=== PATIENT | female | born 1945 | race Caucasian/White ===

== ENCOUNTER 2020-07-21 09:12 | Observation (INO) | payer MEDICARE, SELFPAY ==
[2020-07-21] VITALS (22 sets, daily range): BP systolic 117–158; BP diastolic 53–87; PULSE 50–87; RESP 10–18; TEMP 35.6–36.6; O2SAT 94–100; BMI 20.2
--- NOTE | 2020-07-21 09:21 | ED.LOWEXIN ---
HPI - Extremity Injury (Lower) General Chief Complaint: Extremity Injury, Lower Stated Complaint: Fall Time Seen by Provider: 07/21/20 09:19 Source: patient and EMS Mode of arrival: EMS Limitations: no limitations History of Present Illness HPI Narrative: The patient is a 74-year-old female who presents with right ankle injury. She stepped getting out of her RV this morning and has a laceration to the medial side of her ankle injury has severe pain. She denies any other injury or hitting her head. She denies any numbness or tingling. She is afraid to move her foot because of pain. She received 100 of fentanyl prior to arrival. She denies any pain or injury to her knee MD complaint: ankle injury Related Data Home Medications Medication Instructions Recorded Confirmed atorvastatin 20 mg PO QPM 07/21/20 07/21/20 estradiol 1 mg PO DAILY 07/21/20 07/21/20 Allergies Allergy/AdvReac Type Severity Reaction Status Date / Time amoxicillin Allergy Hives Verified 07/21/20 09:40 Review of Systems Review of Systems Narrative: GENERAL: Denies chills,fever HEENT: Denies throat pain RESPIRATORY: Denies dyspnea, cough, wheezing CARDIOVASCULAR: Denies chest pain, palpitations GASTROINTESTINAL: Denies nausea, vomiting MUSCULOSKELETAL: See HPI SKIN: See HPI NEUROLOGIC: Denies weakness, dizziness, headache, numbness 8 point review of systems is negative except for those stated above and HPI Patient History Medical History Hyperlipidemia (Acute) Social History household members: significant other Smoking Status: Former smoker Exam Initial Vital Signs Initial Vital Signs: Vital Signs Temperature 97.9 F 07/21/20 09:06 Pulse Rate 53 L 07/21/20 09:06 Respiratory Rate 18 07/21/20 09:06 Blood Pressure 133/64 07/21/20 09:06 Pulse Oximetry 95 07/21/20 09:06 GENERAL: Well-appearing, well-nourished and in no acute distress. HEENT: Head atraumatic,EOMI, pupils reactive, face symmetric, moist mucous membranes CARDIOVASCULAR: Regular rate and rhythm without murmurs, rubs or gallops. RESPIRATORY: Breath sounds equal bilaterally, no wheezes rales or rhonchi. ABDOMEN: Soft, nontender. Normoactive bowel sounds all 4 quadrants. No guarding or rebound. EXTREMITIES: Normal range of motion, no clubbing or edema. Neurovascularly intact. Obvious laceration right medial side able to flex and extend ankle pulse is weak but present able to move toes NEUROLOGICAL: Alert and oriented x4.Normal gait and speech. Cranial nerves II through XII grossly intact. SKIN: 10 cm laceration noted right medial side tendons are visualized. Procedures Orthopedic Splinting/Casting Injury #1: Side: right Lower Extremity Immobilizer: posterior splint Post splinting neuro exam: intact and no change Post splinting vascular exam: no change Placed by: Nursing Course Orders Ordered: ED Orders 07/21/20 10:04 Basic Metabolic Panel Stat Complete Blood Count AUTO DIFF Stat Hydrocodone Bitart/Acetaminophen (Barnard 5/325) 1 tab PO Q4HR PRN PRN Reason: Pain, Mild (1-3) Lactated Ringer's (Lactated Ringers) 1,000 mls @ 125 mls/hr IV CONT [facility] Last Admin: 07/21/20 17:42 Dose: 125 mls/hr Documented by: HOLLEY Cefazolin Sodium/Dextrose (Ancef) 1 gm in 50 mls @ 200 mls/hr IV Q8H [facility] Stop: 07/22/20 05:14 Naloxone HCl (Narcan) 0.2 mg IV Q2MIN PRN PRN Reason: Opiate Reversal Ondansetron HCl (Zofran Odt) 4 mg PO Q4HR PRN PRN Reason: Nausea And Vomiting Oxycodone HCl (Percolone) 5 mg PO Q3HR PRN PRN Reason: Pain, Moderate (4-6) Discontinued Medications Acetaminophen (Tylenol) 975 mg PO NOW ONE Stop: 07/21/20 12:55 Last Admin: 07/21/20 18:25 Dose: Not Given Documented by: HOLLEY Acetaminophen (Tylenol) 975 mg PO NOW ONE Stop: 07/21/20 14:01 Last Admin: 07/21/20 18:26 Dose: Not Given Documented by: HOLLEY Acetaminophen (Tylenol) 975 mg PO TID [facility] Hydrocodone Bitart/Acetaminophen (Barnard 5/325) 1 tab PO Q4HR PRN PRN Reason: Pain, Mild (1-3) Bupivacaine HCl/Epinephrine Bitart (Sensorcaine 0.5% W/ Epi (Pf)) 30 ml INJ NOW ONE Stop: 07/21/20 14:02 Last Admin: 07/21/20 14:01 Dose: 30 ml Documented by: JESUS Celecoxib (Celebrex) 400 mg PO NOW ONE Stop: 07/21/20 12:55 Last Admin: 07/21/20 18:26 Dose: Not Given Documented by: HOLLEY Sodium Chloride 1,000 ml/ (Gentamicin Sulfate 80 mg) 0 ml IRR NOW ONE Stop: 07/21/20 14:01 Last Admin: 07/21/20 14:27 Dose: 1,002 ml Documented by: Admin: 07/21/20 14:00 Dose: 1,002 ml Documented by: JESUS Fentanyl (Sublimaze) 0 mcg IV Q5MIN PRN PRN Reason: Pain, Severe (7-10) Hydromorphone HCl (Dilaudid) 0 mg IV Q5MIN PRN PRN Reason: Pain, Mild (1-3) Cefazolin Sodium/Dextrose (Ancef) 1 gm in 50 mls @ 200 mls/hr IV NOW ONE Stop: 07/21/20 11:14 Last Infusion: 07/21/20 11:19 Dose: 0 mls/hr Documented by: Admin: 07/21/20 11:02 Dose: 200 mls/hr Documented by: JAVIER Lactated Ringer's (Lactated Ringers) 1,000 mls @ 42 mls/hr IV CONT [facility] Last Infusion: 07/21/20 15:22 Dose: 0 mls/hr Documented by: Admin: 07/21/20 13:13 Dose: 42 mls/hr Documented by: BRIANNE Cefazolin Sodium/Dextrose (Ancef) 1 gm in 50 mls @ 200 mls/hr IV NOW ONE Stop: 07/21/20 13:11 Last Infusion: 07/21/20 13:42 Dose: 0 mls/hr Documented by: Admin: 07/21/20 13:32 Dose: 200 mls/hr Documented by: LEILA Lactated Ringer's (Lactated Ringers) 1,000 mls @ 120 mls/hr IV CONT [facility] Last Admin: 07/21/20 18:26 Dose: Not Given Documented by: HOLLEY Lactated Ringer's (Lactated Ringers) 1,000 mls @ 125 mls/hr IV CONT [facility] Last Admin: 07/21/20 18:27 Dose: Not Given Documented by: HOLLEY Cefazolin Sodium/Dextrose (Ancef) 1 gm in 50 mls @ 200 mls/hr IV Q8H [facility] Stop: 07/21/20 23:29 Last Admin: 07/21/20 18:27 Dose: Not Given Documented by: HOLLEY Morphine Sulfate (Morphine) 2 mg IV NOW ONE Stop: 07/21/20 10:40 Last Admin: 07/21/20 10:58 Dose: 2 mg Documented by: JAVIER Naloxone HCl (Narcan) 0.2 mg IV Q2MIN PRN PRN Reason: Opiate Reversal Ondansetron HCl (Zofran) 4 mg IV NOW PRN PRN Reason: Nausea And Vomiting Ondansetron HCl (Zofran) 4 mg IV Q4HR PRN PRN Reason: Nausea And Vomiting Oxycodone HCl (Percolone) 5 mg PO PACUNOW PRN PRN Reason: Mild or moderate pain Oxycodone HCl (Percolone) 5 mg PO Q3HR PRN PRN Reason: Pain, Moderate (4-6) Consultations Consultation #1: Dr. Mcintyre updated on open fracutre and reviewed xray. will go to OR today at 1330. Recommends antibiotics. Time: 10:44 Vital Signs Vital signs: Vital Signs - 8 hr 07/21/20 10:40 07/21/20 11:00 07/21/20 11:25 Temperature 96.7 F L Pulse Rate 81 55 L 56 L Respiratory Rate 16 Blood Pressure 156/87 H 137/61 Pulse Oximetry 100 99 98 07/21/20 11:30 07/21/20 12:00 Temperature Pulse Rate 54 L 56 L Respiratory Rate Blood Pressure 126/61 136/61 Pulse Oximetry 97 97 MDM - Extremity Injury (Lower) Lab Data Attestation: I reviewed the patient's lab results. Result diagrams: 07/21/20 10:04 07/21/20 10:04 Labs: Lab Results 07/21/20 07/21/20 07/21/20 Range/Units 10:04 10:04 11:21 WBC 7.3 (4.5-11.0) X10^3/uL RBC 4.02 (4.0-5.2) X10^6/uL Hgb 12.3 (12.0-16.0) g/dL Hct 37.1 (36-46) % MCV 92.3 (80-100) fL MCH 30.6 (26-34) PG MCHC 33.1 (30-36) % RDW 12.8 (11.6-14.8) % Plt Count 236 (150-400) X10^3/uL Neut % (Auto) 63.4 (50-75) % Lymph % (Auto) 28.7 (25-40) % [place] % (Auto) 6.1 (3-14) % Eos % (Auto) 1.1 L (2-4) % Baso % (Auto) 0.7 (0-2) % Neut # (Auto) 4700 (6335-8587) /uL Lymph # (Auto) 2100 (5151-5001) /uL [place] # (Auto) 400 (0-900) /uL Eos # (Auto) 100 (0-450) /uL Baso # (Auto) 0 (0-100) /uL Sodium 137 (137-145) mmol/L Potassium 4.0 (3.4-5.1) mmol/L Chloride 103 (98-107) mmol/L Carbon Dioxide 26 (22-32) mmol/L BUN 16 (7-17) mg/dL Creatinine 0.83 (0.52-1.04) mg/dL Estimated GFR > 60.0 (>60) mL/min BUN/Creatinine Ratio 19.3 (6-22) Glucose 115 H (80-110) mg/dL Calcium 9.1 (8.4-10.2) mg/dL COVID-19 PCR Negative (Negative) Imaging Data Extremity x-ray #1: Radiologist's Impression: [address] [address] XRay Report Signed Patient: Isidoro Bhandari#: [id number] : 4Acct:[id number] Age/Sex: 74 / FDate of Service: 07/21/20 Loc: ED Accession Number: [id number] Procedure: XR ankle RT min 3V Ordering Provider: Kala Minor D.O. PROCEDURE: XR ANKLE RT MIN 3V INDICATIONS: open fracture TECHNIQUE: 3 views of the ankle were acquired. COMPARISON: None. FINDINGS: Bones: There is a large displaced avulsion fracture of the medial malleolus. Ankle mortise is normally aligned. No suspicious bony lesions. Soft tissues: No tibiotalar joint effusion. Achilles tendon appears normal. IMPRESSION: Medial malleolar fracture. Dictated by: Sherrell Soria M.D. on 07/21/2020 at 9:59 Approved by: Sherrell Soria M.D. on 07/21/2020 at 10:03 Discharge Plan Departure Patient Disposition: Admitted to Surgery Clinical Impression: Ankle fracture, right Qualifiers: Encounter type: initial encounter Fracture type: open Open fracture type: open type I or II Qualified Code(s): S82.891B - Other fracture of right lower leg, initial encounter for open fracture type I or II Admit Date/Time: 07/21/20 12:01 Admit Provider: Leonardo Elizondo
[2020-07-21 10:14] LABS: Add Manual Diff / Slide Review NO; Basophils Absolute Auto 0 /uL (0-100); Basophils Percent Auto 0.7 % (0-2); Eosinophils Absolute Auto 100 /uL (0-450); Eosinophils Percent Auto 1.1 % (2-4); Hematocrit 37.1 % (36-46); Hemoglobin 12.3 g/dL (12.0-16.0); Lymphocytes Absolute Auto 2100 /uL (1100-4500); Lymphocytes Percent Auto 28.7 % (25-40); Mean Corpuscular HGB Conc 33.1 % (30-36); Mean Corpuscular Hemoglobin 30.6 PG (26-34); Mean Corpuscular Volume 92.3 fL (80-100); Monocytes Absolute Auto 400 /uL (0-900); Monocytes Percent Auto 6.1 % (3-14); Neutrophils Absolute Auto 4700 /uL (1500-7000); Neutrophils Percent Auto 63.4 % (50-75); Platelet Count 236 X10^3/uL (150-400); Red Blood Cell Count 4.02 X10^6/uL (4.0-5.2); Red Cell Distribution Width 12.8 % (11.6-14.8); White Blood Cell Count 7.3 X10^3/uL (4.5-11.0)
[2020-07-21 10:25] LABS: BUN Creatinine Ratio 19.3 (6-22); Blood Urea Nitrogen 16 mg/dL (7-17); Calcium 9.1 mg/dL (8.4-10.2); Carbon Dioxide 26 mmol/L (22-32); Chloride 103 mmol/L (98-107); Estimated Glomerular Filt Rate > 60.0 mL/min (>60); Glucose 115 mg/dL (80-110); HEMOLYSIS 21 (0-50); Sodium 137 mmol/L (137-145)
[2020-07-21] MEDS: MORPHINE 2 MG/ML INJ IV (10:58)
[2020-07-21] MEDS: CEFAZOLIN 1 GM/50 ML FROZ.PIGGY IV ×3 (11:02→20:43)
[2020-07-21 12:19] LABS: COVID19 -Nasal RAPID Negative (Negative)
[2020-07-21] MEDS: CELECOXIB 200 MG CAPSULE 400 MG PO (13:05)
[2020-07-21] MEDS: ACETAMINOPHEN 325 MG TABLET 975 MG PO (13:06)
--- NOTE | 2020-07-21 13:11 | SUR.OPER ---
Supine on padded OR bed, head on pillow, arms secured on padded arm boards at <90 degrees abduction, legs uncrossed, safety belt at thigh, tape over blanket over nonoperative leg, bump under operative hip.
--- NOTE | 2020-07-21 13:12 | P.HP_ITS ---
History of Present Illness History of Present Illness Date Patient Seen: 07/21/20 Time Patient Seen: 13:12 Chief complaint: Fall Narrative: 74-year-old female who fell this morning getting out of her RV apparently caught her foot on something such as the stairs and has a large laceration over the medial side of the ankle. Was brought to the emergency room where she was noted not only to have an open wound but a displaced medial malleolus fracture, presumed open. Admitted for treatment. She is otherwise healthy Patient History Medical History Hyperlipidemia (Acute) Family & Social History Safety & Behavioral: Feels Safe in Current Yes Environment Been Physically Hurt or No Threatened By a Person Tobacco & Substance use: Smoking Status Former smoker alcohol intake frequency 0-2 drinks per day Substance Use Type does not use Meds Home Medications and Allergies Allergies Allergy/AdvReac Type Severity Reaction Status Date / Time amoxicillin Allergy Hives Verified 07/21/20 09:40 Review of Systems Review of Systems ROS: Yes All systems reviewed with the patient and are negative except as ot herwise documented Exam Vital Signs (past 8 hours): - 07/21/20 09:06 07/21/20 10:00 07/21/20 10:03 Temperature 97.9 F Pulse Rate 53 L 52 L Pulse Rate [Right Posterior Tibial] 50 L Respiratory Rate 18 Blood Pressure 133/64 Pulse Oximetry 95 99 07/21/20 10:30 07/21/20 11:00 07/21/20 11:25 Temperature Pulse Rate 51 L 55 L 56 L Pulse Rate [Right Posterior Tibial] Respiratory Rate Blood Pressure 137/61 Pulse Oximetry 100 99 98 07/21/20 11:30 07/21/20 12:00 07/21/20 12:30 Temperature Pulse Rate 54 L 56 L 55 L Pulse Rate [Right Posterior Tibial] Respiratory Rate Blood Pressure 126/61 136/61 123/58 L Pulse Oximetry 97 97 97 Oxygen Delivery Method Room Air Narrative Exam Narrative: Patient is awake alert oriented and conversant although has fairly severe nausea at the time of assessment. Vital signs are stable and the patient is afebrile HEENT normocephalic atraumatic Lungs clear to auscultation Heart regular rate rhythm Abdomen benign Extremities benign with the exception of the right lower extremity which is in a posterior splint. There is some bleeding through the medial side of the splint. Sensation and circulation of the toes are intact. Objective Labs Result Diagrams: 07/21/20 10:04 07/21/20 10:04 Labs: Laboratory Results - last 24 hr 07/21/20 07/21/20 07/21/20 10:04 10:04 11:21 WBC 7.3 RBC 4.02 Hgb 12.3 Hct 37.1 MCV 92.3 MCH 30.6 MCHC 33.1 RDW 12.8 Plt Count 236 Neut % (Auto) 63.4 Lymph % (Auto) 28.7 [place] % (Auto) 6.1 Eos % (Auto) 1.1 L Baso % (Auto) 0.7 Neut # (Auto) 4700 Lymph # (Auto) 2100 [place] # (Auto) 400 Eos # (Auto) 100 Baso # (Auto) 0 Sodium 137 Potassium 4.0 Chloride 103 Carbon Dioxide 26 BUN 16 Creatinine 0.83 Estimated GFR > 60.0 BUN/Creatinine Ratio 19.3 Glucose 115 H Calcium 9.1 COVID-19 PCR Negative Assessment & Plan Assessment & Plan narrative: 74-year-old female with open right medial malleolar fracture. Plan irrigation and debridement, ORIF medial malleolar fracture and wound repair. Informed consent obtained. COVID-19 COVID-19 status: Negative Result date/Date tested (Pos, Neg/Pending): 07/21/20
[2020-07-21] MEDS: LACTATED RINGERS 1,000 ML 42 ML IV (13:13)
[2020-07-21] MEDS: SODIUM CHLORIDE 0.9% 1,000 ML, GENTAMICIN 80 MG IRR ×2 (14:00→14:27)
[2020-07-21] MEDS: BUPIVACAINE 0.5% W/ EPI (PF) 30 ML VIAL INJ (14:01)
--- NOTE | 2020-07-21 15:07 | P.OP_ITS ---
Operative Date/Time/Diagnoses Date of procedure: 07/21/20 Time of procedure: 15:08 Pre-op diagnosis: Right open medial malleolus fracture Post-op diagnosis: other (Achilles tendon partial laceration) Procedure & Clinicians Procedure: 1. Irrigation and debridement of deep laceration medial and posterior right ankle 2. Open reduction and internal fixation of right medial malleolar fracture 3. Open repair Achilles tendon laceration Same procedure as scheduled: No (Additional repair Achilles tendon.) Indications: 74-year-old female status post a fall with laceration over the medial ankle and displaced medial malleolar fracture. Admitted through the emergency room. We discussed nature of condition, prognosis, and options recommend surgical treatment informed consent obtained. Surgeon: Leonardo Elizondo Click Yes if Unassisted: Yes Anesthesia Type: General and Peripheral nerve block Operative Notes Findings: Displaced medial malleolar fracture with the medial malleolar fragment displaced nearly out of the wound. Laceration extended posteriorly across the Achilles tendon with a partial approximately 2/3 laceration of the Achilles tendon just proximal to the insertion. Tibialis posterior, flexor hallucis and flexor digitorum appeared intact. Closure Type: primary Estimated Blood Loss (mL): 20 Tourniquet time (min): 45 Procedure in detail: After administration of IV antibiotics and satisfactory induction of anesthetic a tourniquet placed high on the right thigh and right lower extremities prepped and draped in usual sterile fashion. Examination of the wound as noted above. The wound was copiously irrigated with pulsatile lavage with gentamicin. There is no gross contamination. After irrigation the medial malleolar fragment was reduced into the proper anatomic location. Achilles tendon was repaired with 1. Vicryl. Mode medial malleolus fracture the n reduced and held in place with a towel clip reduction clamp anatomical appearance of reduction was confirmed with fluoroscopic images. This was then fixed with 2 malleolar screws with resultant stable in satisfactory position obtained. The wound was then copiously irrigated the medial retinaculum was repaired with 1. Vicryl. Skin then closed with interrupted nylon sutures after another round of irrigation. Nicola local infiltrated with Marcaine. Wound was sterilely dressed and a well-padded posterior splint was applied. Tourniquet deflated, anesthetic terminated, and the patient taken to postanesthetic recovery in satisfactory condition. Complications: none Post-operative Condition: stable Disposition: PACU Plan for aftercare: Routine postoperative aftercare for ankle fracture non- weight weight-bearing right lower extremity. Probable discharge tomorrow
--- NOTE | 2020-07-21 15:13 | SUR.PHASEI ---
Patient REGINE's x 4. Right foot: able to feel sensation, able to wiggle toes, cap refill < 2 seconds. Denies pain and nausea.
--- NOTE | 2020-07-21 15:28 | SUR.PHASEI ---
Report given to acute care nurse.
[2020-07-21] MEDS: LACTATED RINGERS 1,000 ML 125 ML IV (17:42)
[2020-07-21] MEDS: OXYCODONE IR 5 MG TABLET PO (22:13)
[2020-07-22] VITALS: BP 138/78; PULSE 78; RESP 18; TEMP 36.3; O2SAT 100
[2020-07-22] MEDS: LACTATED RINGERS 1,000 ML 125 ML IV (02:55)
[2020-07-22 04:40] VITALS: BP 107/64; PULSE 73; RESP 16; TEMP 36.2; O2SAT 100
[2020-07-22] MEDS: CEFAZOLIN 1 GM/50 ML FROZ.PIGGY IV (04:44)
--- NOTE | 2020-07-22 08:08 | PM.DS.1 ---
History of Present Illness History of Present Illness Date Patient Seen: 07/22/20 Time Patient Seen: 08:08 Chief complaint: Fall Narrative: Patient's pain is mild. Denies fever chills. No nausea vomiting. Patient did has some nausea yesterday which is cleared. Patient lives in [facility] and is here staying in as local RV park. Plans to return home in approximately 10 days. She is staying in the RV with her partner. Discharge Providers Provider Date of admission: 07/21/20 12:01 Discharge Date: 07/22/20 Consults: 07/21/20 17:05 Consult to Discharge Planning Routine Comment: Consult to Physical Therapy Evaluate & Treat Comment: NWB RLE Physician Instructions: Evaluate and Treat Consult to Respiratory Therapy Evaluate & Treat Comment: Physician Instructions: Evaluate and treat 07/22/20 08:02 Consult to Physical Therapy Evaluate & Treat Comment: Walker for home Physician Instructions: Evaluate and Treat Discharge provider: David Ruiz PA-C Summary Hospital Course Discharge Diagnosis: Pre-op diagnosis: Right open medial malleolus fracture Hospital Course: Procedure & Clinicians Procedure: 1. Irrigation and debridement of deep laceration medial and posterior right ankle 2. Open reduction and internal fixation of right medial malleolar fracture 3. Open repair Achilles tendon laceration Same procedure as scheduled: No (Additional repair Achilles tendon.) Indications: 74-year-old female status post a fall with laceration over the medial ankle and displaced medial malleolar fracture. Admitted through the emergency room. We discussed nature of condition, prognosis, and options recommend surgical treatment informed consent obtained. Surgeon: Leonardo Elizondo Click Yes if Unassisted: Yes Anesthesia Type: General and Peripheral nerve block Operative Notes Findings: Displaced medial malleolar fracture with the medial malleolar fragment displaced nearly out of the wound. Laceration extended posteriorly across the Achilles tendon with a partial approximately 2/3 laceration of the Achilles tendon just proximal to the insertion. Tibialis posterior, flexor hallucis and flexor digitorum appeared intact. Closure Type: primary Estimated Blood Loss (mL): 20 Tourniquet time (min): 45 Procedure in detail: After administration of IV antibiotics and satisfactory induction of anesthetic a tourniquet placed high on the right thigh and right lower extremities prepped and draped in usual sterile fashion. Examination of the wound as noted above. The wound was copiously irrigated with pulsatile lavage with gentamicin. There is no gross contamination. After irrigation the medial malleolar fragment was reduced into the proper anatomic location. Achilles tendon was repaired with 1. Vicryl. Mode medial malleolus fracture then reduced and held in place with a towel clip reduction clamp anatomical appearance of reduction was confirmed with fluoroscopic images. This was then fixed with 2 malleolar screws with resultant stable in satisfactory position obtained. The wound was then copiously irrigated the medial retinaculum was repaired with 1. Vicryl. Skin then closed with interrupted nylon sutures after another round of irrigation. Nicola local infiltrated with Marcaine. Wound was sterilely dressed and a well-padded posterior splint was applied. Tourniquet deflated, anesthetic terminated, and the patient taken to postanesthetic recovery in satisfactory condition. Complications: none Patient admitted to the hospital for the above-mentioned procedure. Patient consented to the same. Patient taken to the operating room on July 21, 2020. Patient back in her room recovering well as in stable condition. Patient currently staying at our at a local park with her partner. Patient plans on returning home to [facility] in approximately 10 days. Patient will have her initial postop appointment with [facility] in 7-10 days prior to returning home. She will need to schedule postop appointments in [facility] as well. Patient is in stable condition and plan to discharge home today after physical therapy. Exam Vital Signs (past 8 hours): - 07/22/20 04:40 Temperature 97.2 F L Pulse Rate 73 Respiratory Rate 16 Blood Pressure 107/64 Pulse Oximetry 100 Oxygen Delivery Method Room Air Oxygen Flow Rate 0 Narrative Exam Narrative: Pleasant 74-year-old female resting comfortably in bed in no apparent distress. Toes are warm. Able to wiggle all toes. Sensation intact to light touch. She has good capillary refill. Her calf is nontender to palpation. Splint is clean, dry and intact. Objective Labs Result Diagrams: 07/21/20 10:04 07/21/20 10:04 Labs: Laboratory Results - last 24 hr 07/21/20 07/21/20 07/21/20 10:04 10:04 11:21 WBC 7.3 RBC 4.02 Hgb 12.3 Hct 37.1 MCV 92.3 MCH 30.6 MCHC 33.1 RDW 12.8 Plt Count 236 Neut % (Auto) 63.4 Lymph % (Auto) 28.7 [place] % (Auto) 6.1 Eos % (Auto) 1.1 L Baso % (Auto) 0.7 Neut # (Auto) 4700 Lymph # (Auto) 2100 [place] # (Auto) 400 Eos # (Auto) 100 Baso # (Auto) 0 Sodium 137 Potassium 4.0 Chloride 103 Carbon Dioxide 26 BUN 16 Creatinine 0.83 Estimated GFR > 60.0 BUN/Creatinine Ratio 19.3 Glucose 115 H Calcium 9.1 COVID-19 PCR Negative Discharge Assessment & Plan Assessment and Plan Assessment: Postop day 1. Patient is stable condition recovering well after surgery. She will work with physical therapy and be discharged home later today. Discharge Plan Discharge Plan Patient Disposition: Home Discharge comment: DC home after PT Discharge orders & Medications Prescriptions: New oxycodone 5 mg Tablet 5 mg PO Q3HR PRN (Reason: Pain, Moderate (4-6)) Qty: 40 RF: 0 hydroxyzine pamoate [Vistaril] 25 mg capsule 25 mg PO QID PRN (Reason: nausea and vomiting) Qty: 20 RF: 0 acetaminophen [Tylenol Extra Strength] 500 mg tablet 500 mg PO QID PRN (Reason: pain) Qty: 60 RF: 0 Continued atorvastatin 20 mg Tablet 20 mg PO QPM RF: 0 estradiol 1 mg Tablet 1 mg PO DAILY RF: 0 Follow up/Referrals: Leonardo Elizondo MD [Physician] - (7-10 days with [facility]) Discharge Health Status Multidrug resistant organism: No MDRO Diet/Activity/Treatments Diet: Diet as Tolerated Activity: Nonweightbearing right lower extremity Cold/Heat Therapy: Ice right lower extremity as needed Other treatments: Rest, ice, elevation, walker for home use Skin/Wound/Dressing Care Report to your healthcare provider any signs of infection, such as:: chills, fever, increased pain, unusual drainage and unusual redness Dressing: Keep clean and dry Visit Report/Discharge Packet Instructions: DI for Open Reduction Internal Fixation Surgery, DI for Prescription Opioid Use Stand Alone Forms: Surgery Discharge Discharge Data Attending Provider: Leonardo Elizondo Admit Date/Time: 07/21/20 12:01
--- NOTE | 2020-07-22 09:15 | PT.IIE ---
Surgery Performed Operation Date: 07/21/20 13:30 Actual Procedures p ORIF Ankle Fracture(Right) - Leonardo Elizondo MD Medical History (Last Reviewed 07/21/20 @ 13:13 by Leonardo Elizondo MD) Hyperlipidemia (Acute) Physical Therapy Inpatient Evaluation/Re-Eval M1 PT/OT-IP Prior Functional Status Start: 07/22/20 14:49 Freq: NEEDED Status: Active Protocol: Document 07/22/20 09:15 AB (Rec: 07/22/20 15:27 AB [id number]) Medical Review Prior Functional Status Medical History Reviewed Yes Communication able to make needs Mobility and Gait pt stated that she is independent with all mobilities and ambulation without AD Social History Household Members significant other Living Arrangements RV Number of Floors (Floors) One Floor Number of Stairs To Enter/Railing? 2 steps L rail +3 steps R rail to enter Home Environment Standard Height Toilet,Walk in Shower,Built-In Shower Seat Home Equipment Hand Held Shower,Grab Bars In Shower Additional Social History Comment pt lives in [place] and was just here for a vacation with her BF and will be staying at their motor home until the end of the month M2 PT-IP Current Condition Start: 07/22/20 14:49 Freq: NEEDED Status: Active Protocol: Document 07/22/20 09:15 AB (Rec: 07/22/20 15:27 AB [id number]) Physical Therapy Current Condition Current Condition Evaluation Date 07/22/20 Treatment Diagnosis s/p R medial malleolus fx s/p ORIF and I&D; difficulty in walking Onset Date 07/21/20 Weight Bearing Status Weight Bearing Status Non-Weight Bearing Allowed Weight Bearing Amount (enter % RLE NWB or #) (%) M3 PT-IP Subjective Start: 07/22/20 14:49 Freq: NEEDED Status: Active Protocol: Document 07/22/20 09:15 AB (Rec: 07/22/20 15:27 AB [id number]) Subjective Physical Therapy Visit Type Type Initial Evaluation Visit Start Time 09:15 Visit Stop Time 10:41 Total Visit Minutes 86 Number of MACHINE BUILDER Visits 0 Physical Therapy Visit Comments Patient Comments agreeable to do PT Therapy Pain Assessment Pain Present Pain Present Denied Pain M4 PT-IP Mobility and Gait Start: 07/22/20 14:49 Freq: NEEDED Status: Active Protocol: Document 07/22/20 09:15 AB (Rec: 07/22/20 15:27 AB [id number]) PT-Bed Mobility Assessment Supine to Sit Supine to Sit Standby Assistance Sit to Supine Sit to Supine Standby Assistance PT-Transfer Assessment Sit to and From Stand Sit to and from Stand Contact Guard Assistance, Minimal Assistance,1 Person Assistance,Use of Upper Extremities Equipment Transfer Assistive Device Gait Belt,Front Wheeled Walker Orthotic/Prosthetic Devices or Brace: No Transfers Transfer Destination Chair Transfer Technique ambulated using FWW Transfer Ability Level of Assist Contact Guard Assistance,1 Person Assistance,Use of Upper Extremities Comments Mobility Comments educated pt on weight bearing precaution on RLE. completed supine to sit SBA and was able to do sit to stand min A with initial sit to stand. instructed pt to sit back and complete sit to stand again after educating on techniques. completed sit to stand again CGA. ambulated towards the chair using FWW CGA and cues. agreed to do stairs. ambulated towards the w/c ~ 25 ft CGA. completed up/down steps sitting bump requiring mod A to get up/down from upright to sitting on chair and max A for getting up from the floor and max cues. pt assisted back to her room. BF arrived. informed regarding pt's need for FWW but tated that they have one in [place] and pt is not walking anyways. educated BF on pt's mobility and importance of FWW. pt stated that he will talk to her BF. set up caregiver training in the afternoon at 1pm today. pt ambulated from w/c to chair using FWW CGA. positioned pt on chair. call light and table placed within reach. Gait Assessment Gait Gait Assistance Required: Contact Guard Assist Distance (Feet) 25 Able to Maintain Weight Bearing Status Yes During Gait Assistive Devices Assistive Device Gait Belt,Front Wheeled Walker Orthotic/Prosthetic Devices or Brace: No Gait Deviations General Gait Pattern Antalgic Factors Limiting Gait Function Factors Limiting Gait Function Decreased Activity Tolerance, Decreased Strength,Limited Range of Motion,Poor Balance, Poor Safety Awareness Comments Gait Comments pls refer to mobility section for details Stair Climbing Assessment Evaluation Level of Assist On Stairs Moderate Assistance,Maximal Assistance,1 Person Assistance Devices Stair Climbing Assistive Devices Front Wheel Walker Technique/Endurance Stair Climbing Direction Ascend and Descend Stair Climbing Technique Sitting Bump Number of Steps Climbed 3 Query Text: Stair Climbing Set # Repetitions (reps) 2 PT-Balance Assessment Sitting Balance and Reactions Static Sitting Balance Ability Good Dynamic Sitting Balance Ability Good Standing Balance and Reactions Static Standing Balance Ability Fair Dynamic Standing Balance Ability Fair Device Used FWW M5 PT-IP Objective Assessments Start: 07/22/20 14:49 Freq: NEEDED Status: Active Protocol: Document 07/22/20 09:15 AB (Rec: 07/22/20 15:27 [id number]) Orientation Orientation/Cognition Level of Alertness Alert Orientation Name,Place,Situation Safety Awareness Decreased Safety Awareness Memory Description Short Term Impaired Gross Range of Motion Lower Extremity ROM Assessment Within Functional Limits Impairments R ankle NT due to soft cast and precaution Strength Lower Extremity Strength Assessment Right Impaired Hip 4-/5 Knee 4-/5 Ankle n/t due to precaution Coordination Assessment Gross Coordination Gross Coordination WNL Sensation Assessment Sensation Gross Sensation WNL Muscle Tone Muscle Tone WNL Yes M6 PT-IP Treatment Start: 07/22/20 14:49 Freq: NEEDED Status: Active Protocol: Document 07/22/20 09:15 AB (Rec: 07/22/20 15:27 [id number]) Physical Therapy Treatment Education Education Provided Precautions,Weight Bearing Status,Safety M7 PT-IP Assessment and Plan Start: 07/22/20 14:49 Freq: NEEDED Status: Active Protocol: Document 07/22/20 09:15 AB (Rec: 07/22/20 15:27 [id number]) PT Summary Assessment and Plan Potential Rehabilitation Potential Good Status of Condition at Evaluation Stable Summary Impairments Pain,ROM,Strength,Balance, Coordination,Sensation,Tone, Cognition,Bed Mobility, Transfers,Gait,Activity Tolerance Assessment Summary pt requiring CGA with transfers and ambulation using FWW but required mod to max A for stair climbing. set up caregiver training at 1 pm today. d/c plan depending on caregiver training and if BF will be able to assist pt safely, pt may go home when stable. Goals Bed Mobility Goal Independent Transfer Goal Independent,Front Wheeled Walker Gait Goal Independent,Front Wheel Walker Gait Distance 50 Other Goals up/down 5 steps sitting bump min A Days to Meet Goals 5 Frequency of Treatment Frequency Of Treatment Twice a Day Treatment Plan Physical Therapy Treatment Plan Bed Mobility Training,Transfer Training,Gait Training, Therapeutic Exercise,Balance Retraining,Post Op Education, Discharge Planning,Hot or Cold Pack,Neuromuscular Re-ed, Coordination Retraining,Manual Therapy Other Recommendations and Next Treatment caregiver training 07/22 @ 1pm Focus Recommendations To Nursing Amount of Assist Needed 1 Person Assist Discharge Recommendations PT Discharge Recommendations Home with Assistance, Outpatient PT Equipment Needed for Home Before FWW Discharge Transportation Needs at Discharge Private Vehicle
[2020-07-22 10:22] VITALS: BP 143/68; PULSE 67; RESP 16; TEMP 36.4; O2SAT 100
[2020-07-22 11:27] VITALS: BP 141/75; PULSE 86; RESP 16; TEMP 36.2; O2SAT 100
--- NOTE | 2020-07-22 12:39 | CM.DANOTE ---
Addendum entered by Haven Vasquez LPN 07/22/20 12:54: Met now with pt and introduced self and role. She confirms she is feeling good and ready to return to her RV after one more session with PT. A friend is bringing a FWW to the RV. Partner Jair will be here shortly. Home to today as per plan and will be returning to [place] in early August. Insurance: she confirms she has [employer] Original Note: Discharge Planning/Care Management DCP: assessment: case received, EMR reviewed and discussed in Team Rounds. PT will see pt for first time today. Pt is a 74 year old female who admitted thru the ER to care of SNO: Dr. Elizondo. Pt was taken to surgery and is currently NWB RLE. Admission status: OBS: confirmed by [facility] [place] Payer: Medicare Advantage program/[facility] [place] Pt is here visiting from [place] and she and her partner Jair are staying in an RV. DC to home setting is noted by ortho AMENA Ruiz and pending PT clearance. No PT notes are in place yet but [facility] [place] pt is expected to d/c later today after a caregiver training session at 1300. Will check in now with pt and be following. CM Discharge Assessment Start: 07/22/20 12:36 Freq: Status: Active Protocol: Document 07/22/20 12:36 ITV (Rec: 07/22/20 12:38 ITV [id number]) Discharge Planning Assessment Advance Directives? No History Provided By Medical Record Prior Living Arrangements RV Comment lives in [facility]. currently here staying in an RV with her partner Jair Bui. Plans to return to [place] after her 10 day post op check up with SNO. Household Members significant other Is patient alert and oriented? Yes Review Status In Process
--- NOTE | 2020-07-22 13:04 | PT.IPTN ---
Surgery Performed Operation Date: 07/21/20 13:30 Actual Procedures p ORIF Ankle Fracture(Right) - Leonardo Elizondo MD Physical Therapy Treatment Note M2 PT-IP Current Condition Start: 07/22/20 14:49 Freq: NEEDED Status: Active Protocol: Document 07/22/20 09:15 AB (Rec: 07/22/20 15:27 AB [id number]) Physical Therapy Current Condition Current Condition Evaluation Date 07/22/20 Treatment Diagnosis s/p R medial malleolus fx s/p ORIF and I&D; difficulty in walking Onset Date 07/21/20 Weight Bearing Status Weight Bearing Status Non-Weight Bearing Allowed Weight Bearing Amount (enter % RLE NWB or #) (%) M3 PT-IP Subjective Start: 07/22/20 14:49 Freq: NEEDED Status: Active Protocol: Document 07/22/20 13:04 AB (Rec: 07/22/20 16:24 AB [id number]) Subjective Physical Therapy Visit Type Type Treatment Note Visit Start Time 13:04 Visit Stop Time 13:29 Total Visit Minutes 25 Number of BACK UP SCAN COORDINATOR Visits 0 Physical Therapy Visit Comments Patient Comments agreeable to do PT Therapy Pain Assessment Pain Present Pain Present Denied Pain M4 PT-IP Mobility and Gait Start: 07/22/20 14:49 Freq: NEEDED Status: Active Protocol: Document 07/22/20 13:04 AB (Rec: 07/22/20 16:24 AB [id number]) PT-Bed Mobility Assessment Supine to Sit Supine to Sit Standby Assistance Sit to Supine Sit to Supine Standby Assistance Scooting Scooting to Edge of Bed Standby Assistance PT-Transfer Assessment Sit to and From Stand Sit to and from Stand Contact Guard Assistance,1 Person Assistance,Use of Upper Extremities Equipment Transfer Assistive Device Gait Belt,Front Wheeled Walker Orthotic/Prosthetic Devices or Brace: No Transfers Transfer Destination Wheelchair Transfer Technique ambulated using FWW Transfer Ability Level of Assist Contact Guard Assistance,1 Person Assistance,Use of Upper Extremities Comments Mobility Comments caregiver training conducted. educated BF on how to use safety belt and how to assist pt. caregiver was able to put safety belt on and assist pt with transfers and ambulation using FWW. pt completed ambulation using FWW CGA ~ 100 ft. educated caregiver on how to assist pt with stair climbing. pt completed sitting bump and PT demonstrated to caregiver on how to assist pt with going down on the floor and up the floor. Pt and caregiver counter demonstrated and BF was able to assist pt safely. assisted pt back to her room. completed sit to stand from w /c CGA and ambulated to the chair. positioned on chair. call light and table placed within reach. informed nurse that pt is cleared to go home. Gait Assessment Gait Gait Assistance Required: Contact Guard Assist Distance (Feet) 100 Able to Maintain Weight Bearing Status Yes During Gait Assistive Devices Assistive Device Gait Belt,Front Wheeled Walker Orthotic/Prosthetic Devices or Brace: No Factors Limiting Gait Function Factors Limiting Gait Function Decreased Activity Tolerance, Decreased Strength,Poor Balance,Poor Safety Awareness Comments Gait Comments pls refer to mobility section for details Stair Climbing Assessment Evaluation Level of Assist On Stairs Moderate Assistance,Maximal Assistance,1 Person Assistance Devices Stair Climbing Assistive Devices Front Wheel Walker Technique/Endurance Stair Climbing Direction Ascend and Descend Stair Climbing Technique Sitting Bump Number of Steps Climbed 3 Stair Climbing Set # Repetitions (reps) 2 Comments Stair Climbing Comments completed sitting bump: pt requiring mod to max A to get down to the floor and up. BF was able to assist pt safely M5 PT-IP Objective Assessments Start: 07/22/20 14:49 Freq: NEEDED Status: Active Protocol: Document 07/22/20 09:15 AB (Rec: 07/22/20 15:27 AB [id number]) Orientation Orientation/Cognition Level of Alertness Alert Orientation Name,Place,Situation Safety Awareness Decreased Safety Awareness Memory Description Short Term Impaired Gross Range of Motion Lower Extremity ROM Assessment Within Functional Limits Impairments R ankle NT due to soft cast and precaution Strength Lower Extremity Strength Assessment Right Impaired Hip 4-/5 Knee 4-/5 Ankle n/t due to precaution Coordination Assessment Gross Coordination Gross Coordination WNL Sensation Assessment Sensation Gross Sensation WNL Muscle Tone Muscle Tone WNL Yes M6 PT-IP Treatment Start: 07/22/20 14:49 Freq: NEEDED Status: Active Protocol: Document 07/22/20 13:04 AB (Rec: 07/22/20 16:24 AB [id number]) Physical Therapy Treatment Education Education Provided Weight Bearing Status,Safety M7 PT-IP Assessment and Plan Start: 07/22/20 14:49 Freq: NEEDED Status: Active Protocol: Document 07/22/20 13:04 AB (Rec: 07/22/20 16:24 AB [id number]) PT Summary Assessment and Plan Potential Rehabilitation Potential Good Summary Impairments Pain,ROM,Strength,Balance, Coordination,Sensation,Tone, Cognition,Bed Mobility, Transfers,Gait,Activity Tolerance Progress Towards Goals Progressing Toward Goals,Safe For Discharge Assessment Summary caregiver training conducted and pt's significant other was able to assist pt safely. pt may go home when medically stable. Pt stated that her friend will deliver a FWW at their motor home today and will have one when she discharges. Goals Bed Mobility Goal Independent Transfer Goal Independent,Front Wheeled Walker Gait Goal Independent,Front Wheel Walker Gait Distance 50 Other Goals up/down 5 steps sitting bump min A Days to Meet Goals 5 Frequency of Treatment Frequency Of Treatment Twice a Day Treatment Plan Physical Therapy Treatment Plan Bed Mobility Training,Transfer Training,Gait Training, Therapeutic Exercise,Balance Retraining,Post Op Education, Discharge Planning,Hot or Cold Pack,Neuromuscular Re-ed, Coordination Retraining,Manual Therapy Recommendations To Nursing Amount of Assist Needed 1 Person Assist Discharge Recommendations PT Discharge Recommendations Home with Assistance, Outpatient PT Transportation Needs at Discharge Private Vehicle
--- NOTE | 2020-07-22 13:57 | PC.NURSE ---
Day shift: Pt left unit at approx 1400 via WC to private car driven by her SO. Paperwork signed and all questions answered. Pt has all personal belongings. Pt also has MD scripts. Rt ankle/foot/leg wrap CDI at d/c. Discussed in depth to watch for s/s of infection. Spouse was present for d/c teachings as well. Cleared by PT. Pt has her own walker now.
== END 2020-07-22 14:00 | disposition home or self-care (01) ==
LOC: ED 12:01 → AC 12:02
PROVIDERS: Admitting Provider Orthopaedic Surgery; Emergency Provider Emergency Medicine; Visit Provider Orthopaedic Surgery
PROC: 0SSF04Z Reposition Right Ankle Joint with Internal Fixation Device, Open Approach (ICD-10-PCS; CPT 27766; principal; 2020-07-21 13:30)
DX: S82.51XB Displaced fracture of medial malleolus of right tibia, initial encounter for open fracture type I or II (principal); S86.021A Laceration of right Achilles tendon, initial encounter; W10.8XXA Fall (on) (from) other stairs and steps, initial encounter; E78.5 Hyperlipidemia, unspecified; Z11.59 Encounter for screening for other viral diseases
CPT/HCPCS: 27766; 27650; 36415; 36592; 73610; 80048; 85025; 87635; 94760; 96361; 96365; 96375; 96376; 97116; 97161; 97530; 99283; 99284; G0378; J0330; J1100; J1885; J2270; J2405; J2704